=== PATIENT | female | born 1990 | race Two or more races ===

== ENCOUNTER 2019-02-09 13:16 | Emergency (ER) | payer SELFPAY ==
[2019-02-09 13:43] VITALS: BP 113/76; PULSE 65; TEMP 97.9; BMI 29.2
--- NOTE | 2019-02-09 14:39 | PDOC ---
History of Present Illness - General Chief Complaint: Ear Problem Stated Complaint: LT EAR PRESSURE Time Seen by Provider: 02/09/19 14:21 - History of Present Illness Initial Comments: 02/09/19 14:36 28-year-old female without comorbidities presents for evaluation of increasing ear pain 2 days no systemic symptoms Past History - Past Medical History Allergies/Adverse Reactions: Allergies Allergy/AdvReac Type Severity Reaction Status Date / Time No Known Allergies Allergy Verified 02/09/19 14:26 Home Medications: Ambulatory Orders Amox-Tr/K Cl [Augmentin - 875Mg Tablet] 1 tab PO BID #20 tablet 02/09/19 COPD: No - Immunization History Immunization Up to Date: Yes - Suicide/Smoking/Psychosocial Hx Smoking History: Never smoked Hx Alcohol Use: No Drug/Substance Use Hx: No Review of Systems - Review of Systems Constitutional: No: Fever HEENTM: Yes: Ear Pain, Throat Pain, Throat Swelling, Difficulty Swallowing *Physical Exam - Vital Signs Last Vital Signs Temp Pulse Resp BP Pulse Ox 97.9 F 65 18 113/76 98 02/09/19 13:40 02/09/19 13:40 02/09/19 13:40 02/09/19 13:40 02/09/19 13:40 - Physical Exam Comments: 02/09/19 14:37 HEAD: NC/AT EYES: Conjuntiva clear Ears: Right ear canal and tympanic membrane normal; left ear canal is erythematous tympanic membrane is erythemic and retracted NOSE: No d/c THROAT: Moist mucous membrances, oral pharanx erythematous, uvula midline NECK: Supple without adenopathy CARDIAC: S1 S2 LUNGS: CTA Full and Equal breath sounds ABDOMEN: Soft NT ND MS: Full ROM in all joints without edema NEUROLOGIC: No gross sensory or motor deficits, NVID SKIN: Normal color and temperature no lesions or rashes Medical Decision Making - Medical Decision Making 02/09/19 14:37 We'll use Augmentin for otitis media and potential strep *DC/Admit/Observation/Transfer Diagnosis at time of Disposition: Otitis media, Acute pharyngitis - Discharge Dispostion Disposition: HOME Condition at time of disposition: Stable Decision to Admit order: No - Referrals Referrals: Agustin Larkin MD [Primary Care Provider] - Aakash Zeng MD [Staff Physician] - - Patient Instructions Printed Discharge Instructions: Middle Ear Infection Additional Instructions: Please take the antibiotics as directed. Tylenol Motrin for pain as directed. Follow-up with ear nose and throat doctor in 1-2 days for further evaluation and treatment options. - Post Discharge Activity
== END 2019-02-09 14:47 | disposition home or self-care (01) ==
LOC: JERFT 13:16
DX: H66.92 Otitis media, unspecified, left ear (principal); J02.9 Acute pharyngitis, unspecified
CPT/HCPCS: 99281-25

== ENCOUNTER 2020-04-16 05:47 | Emergency (ER) | payer OTHER ==
[2020-04-16 06:24] VITALS: BMI 30.1
[2020-04-16 07:12] VITALS: BP 103/72; PULSE 64; TEMP 97.6
[2020-04-16] MEDS ORDERED: LACTATED RINGERS SOLUTION 1000 ML INFUS.BAG IV ONE (08:16)
--- NOTE | 2020-04-16 08:24 | PDOC ---
History of Present Illness - History of Present Illness Initial Comments: 04/16/20 08:10 29yo F presents w/ back pain, dizziness and cold sweat. The back pain first occurred after she gave on 02/14/2020. Pain is b/l and paraspinal. This has happened 2-3x since giving , and today's was the most intense. She woke up w/ back pain and felt the need to defecate. On the toilet she felt acutely dizzy and folded over her lap which relieved the pain and the feeling of dizziness. The pain is sharp and is relieved by stretching and leaning forward. She also c/o arthralgias in both wrists and knees since . Denies pain w/ urination, trauma, hematuria, falls, lower extremity weakness/numbness/tingling. No hematochezia/melena. Was on a medicine for constipation 2 weeks ago but stopped last week. No allergies. Takes OCP. This has never happened before. PMH - none PSH - none SHx - [id number] mom, denies tobacco, etoh, ilicit drug use. PCP - none ROS no recent illness, fever/cough/vomiting/diarrhea. +nausea. CV - none Lungs - none ABD - - , LMP was prior to second ; has not resumed menstruation. Had some bleeding last week but did not feel/seem like her normal period. PE NAD, resting comfortably, A/O x4 Neuro - CN2-12 intact. strength 5/5 in UE and LE, sensory grossly intact in UE and LE. negative romberg, normal gait Lungs - CTAB CV - normal rate, regular rhythm, no mgr. ABD - +bowel sounds, soft, non-tender, non-distended. no CVA tenderness. MSK - wrists nontender, knees nontender. Assessment - 29yo otherwise healthy female w/ intermittent paraspinal tender ness, mild arthralgia and an episode of lightheadedness since giving 02/14/2020 plan - TSH to r/o León Syndrome CBC to r/o anemia BMP to r/o electrolyte disturbance Upreg/UA to r/o and UTI 1L LR to hydrate. 04/16/20 08:36 04/16/20 09:21 Re-eval: Chemistry and CBC wnl. Urine suggests UTI. Sent keflex to pharmacy and gave pt PCP referral, d/c, and return instructions. Dispo: home. <Simeon Trejo - Last Filed: 04/16/20 09:21> <Juliane Anthony Oswaldootis - Last Filed: 04/20/20 17:49> - General Chief Complaint: Back Pain Stated Complaint: SIDE/BACK PAIN Time Seen by Provider: 04/16/20 07:01 Past History - Medical History COPD: No - Immunization History Immunization Up to Date: Yes - Psycho-Social/Smoking History Smoking History: Never smoked Information on smoking cessation initiated: No - Substance Abuse Hx (Audit-C & DAST Scrn) How often the patient has a drink containing alcohol: Never Score: In Men: 4 or > Positive; In Women: 3 or > Positive: 0 Screen Result (Pos requires Nsg. Audit-10AR): Negative In the last yr the pt used illegal drug/Rx for NonMed reason: No Score: Yes response is considered Positive: 0 Screen Result (Positive result requires Nsg. DAST-10): Negative <Simeon Trejo - Last Filed: 04/16/20 09:21> <Juliane Anthonybhavinotis - Last Filed: 04/20/20 17:49> - Medical History Allergies/Adverse Reactions: Allergies Allergy/AdvReac Type Severity Reaction Status Date / Time No Known Allergies Allergy Verified 04/16/20 05:52 Home Medications: Ambulatory Orders Cephalexin [Keflex] 500 mg PO BID 7 Days #14 capsule 04/16/20 Review of Systems - Review of Systems Able to Perform ROS?: Yes Constitutional: Yes: See HPI. No: Chills, Fever, Malaise, Weakness HEENTM: Yes: See HPI. No: Recent change in vision Respiratory: Yes: See HPI. No: Cough, Shortness of Breath Cardiac (ROS): Yes: See HPI, Lightheadedness. No: Chest Pain, Edema, Palpitations, Syncope ABD/GI: Yes: See HPI. No: Constipated, Diarrhea, Nausea, Vomiting : Yes: See HPI. No: Dysuria, Discharge, Frequency, Flank Pain, Hematuria, Pain, Urgency Musculoskeletal: Yes: See HPI, Back Pain. No: Joint Pain, Muscle Pain Integumentary: Yes: See HPI. No: Bruising, Change in Color, Dryness, Erythema, Pallor, Rash Neurological: Yes: See HPI, Dizziness. No: Headache, Numbness, Paresthesia, Tingling, Tremors, Weakness Psychiatric: No: Anxiety, Depression Endocrine: Yes: See HPI. No: Symptoms Reported Hematologic/Lymphatic: Yes: See HPI. No: Symptoms Reported, Anemia, Easy Bleeding, Easy Bruising All Other Systems: Reviewed and Negative <Juliane Anthony - Last Filed: 04/20/20 17:49> *Physical Exam - Vital Signs Last Vital Signs Temp Pulse Resp BP Pulse Ox 97.6 F 64 18 103/72 100 04/16/20 07:12 04/16/20 07:12 04/16/20 07:12 04/16/20 07:12 04/16/20 07:12 <Simeon Trejo - Last Filed: 04/16/20 09:21> - Vital Signs Last Vital Signs Temp Pulse Resp BP Pulse Ox 97.6 F 64 18 103/72 100 04/16/20 07:12 04/16/20 07:12 04/16/20 07:12 04/16/20 07:12 04/16/20 07:12 - Physical Exam General Appearance: Yes: Nourished, Appropriately Dressed, Apparent Distress HEENT: positive: EOMI, MADE[place], Normal ENT Inspection, Normal Voice, Pharynx Normal Neck: positive: Supple. negative: Tender Respiratory/Chest: positive: Lungs Clear. negative: Chest Tender, Respiratory Distress Cardiovascular: positive: Regular Rhythm, Regular Rate. negative: Edema Vascular Pulses: Dorsalis-Pedis (R): 2+, Doralis-Pedis (L): 2+ Gastrointestinal/Abdominal: positive: Normal Bowel Sounds, Soft. negative: Tender, Guarding, Rebound, Tenderness Musculoskeletal: positive: Normal Inspection, Other (thoracic paraspinal tenderness, no midline tenderness). negative: CVA Tenderness Extremity: positive: Normal Capillary Refill, Normal Inspection, Normal Range of Motion Integumentary: positive: Normal Color, Dry, Warm Neurologic: positive: pick and shovel worker II-XII NML intact, Fully Oriented, Alert, Normal Mood/Affect <Juliane Anthony - Last Filed: 04/20/20 17:49> ED Treatment Course - LABORATORY CBC & Chemistry Diagram: 04/16/20 08:03 04/16/20 08:03 <Mk Trejoel Kat - Last Filed: 04/16/20 09:21> - LABORATORY CBC & Chemistry Diagram: 04/16/20 08:03 04/16/20 08:03 - ADDITIONAL ORDERS Additional order review: 04/16/20 08:03 Urine Culture - Final Urine - Urine Clean Catch Normal Urogenital Chely 04/16/20 08:03 RBC 4.59 MCV 93.0 MCHC 33.1 RDW 13.1 MPV 8.4 - Medications Given in the ED: ED Medications Discontinued Medications Generic Name Dose Route Start Last Admin Trade Name Freq PRN Reason Stop Dose Admin Lactated Ringer's 1,000 ml 04/16/20 08:16 04/16/20 08:42 Lactated Ringers Solution IV 04/16/20 08:17 1,000 ml NOW ONE Administration <Juliane Anthony - Last Filed: 04/20/20 17:49> Discharge - Discharge Information Problems reviewed: Yes - Admission No <Simeon Trejo - Last Filed: 04/16/20 09:21> <Juliane Anthony - Last Filed: 04/20/20 17:49> - Discharge Information Clinical Impression/Diagnosis: UTI (urinary tract infection) Qualifiers: Urinary tract infection type: site unspecified Hematuria presence: with hematuria Qualified Code(s): N39.0 - Urinary tract infection, site not specified Condition: Stable Disposition: HOME - Additional Discharge Information Prescriptions: Cephalexin [Keflex] 500 mg PO BID 7 Days #14 capsule - Follow up/Referral Referrals: [facility] [place] [Provider Group] - Patient Discharge Instructions Patient Printed Discharge Instructions: DI for Urinary Tract Infection (UTI) Additional Instructions: What happened: You came into the ED with dizziness and back pain. We found a urinary tract infection (UTI) when we analyzed your urine. We prescribed and sent a medicine (antibiotic) to the pharmacy. What to do at home: take the entire course of antibiotics (7 days). If you have any discomfort you may take ibuprofen (400mg every 4-6hours) or tylenol (500- 1000mg 3x/day). Follow up: We have referred you to a primary care doctor. Please followup with this physician as soon as you can. Come back: if you are in severe distress, have any bad fever, or any new or worsening concerns. Print Language: [place] - Post Discharge Activity
[2020-04-16 08:29] LABS: HEMATOCRIT 42.7 % (32.4-45.2); HEMOGLOBIN 14.1 GM/dL (10.7-15.3); MCH 30.8 pg (25.7-33.7); MCHC 33.1 g/dl (32.0-36.0); MEAN PLT VOLUME 8.4 fl (7.5-11.1); PLATELET COUNT 270 K/MM3 (134-434); RBC 4.59 M/mm3 (3.60-5.2); RDW 13.1 % (11.6-15.6); WHITE BLOOD COUNT 8.4 K/mm3 (4.0-10.0)
[2020-04-16 08:36] LABS: HCG,QUALITATIVE URINE Negative
--- NOTE | 2020-04-16 08:38 | PDOC ---
Attending Attestation - Resident Resident Name: Simeon Trejo - ED Attending Attestation I have performed the following: I have examined & evaluated the patient, The case was reviewed & discussed with the resident, I agree w/resident's findings & plan - HPI HPI: 04/16/20 08:37 29yo F presents w/ back pain, dizziness and cold sweat. The back pain first occurred after she gave on 02/14/2020. Pain is b/l and paraspinal. This has happened 2-3x since giving , and today's was the most intense. She woke up w/ back pain and felt the need to defecate. On the toilet she felt acutely dizzy and folded over her lap which relieved the pain and the feeling of dizziness. The pain is sharp and is relieved by stretching and leaning forward. She also c/o arthralgias in both wrists and knees since . Denies pain w/ urination, trauma, hematuria, falls, lower extremity weakness/numbness/tingling. No hematochezia/melena. Was on a medicine for constipation 2 weeks ago but stopped last week. No allergies. Takes OCP. - Physicial Exam PE: 04/16/20 08:37 General: Well appearing, awake and alert, NAD. HEENT: NCAT, PERRL, EOMI, clear conjunctiva, anicteric, moist mucous membranes, clear oropharynx, no oral lesions.. Neck: neck supple, FROM Resp: CTAB, normal and even respirations, no respiratory distress CVS: RRR, no murmurs, 2+ peripheral pulses throughout, no peripheral edema Abdomen: soft, NTND, no rebound or guarding. No CVAT. Back: no midline tenderness, normal inspection and ROM; mild paravertebral TTP in the lower thoracic region. no flank or CVAT. MSK: no edema, GURROLA x4, ROM intact. No clubbing or cyanosis. normal bulk and tone. Extremities: no calf tenderness Neuro: alert, oriented appropriately; no focal neurologic deficits Skin: warm and well perfused, cap refill <2 sec, normal color - Medical Decision Making 04/16/20 08:38 Vital Signs Temp Pulse Resp BP Pulse Ox 97.6 F 64 18 103/72 100 04/16/20 07:12 04/16/20 07:12 04/16/20 07:12 04/16/20 07:12 04/16/20 07:12 vitals reviewed wnl. ddx. back pain: muscle spasms, myalgias, anemia, electrolyte/metabolic derangements, UTI, pyelonephritis no midline sx currently no pain has occ paraspinal pain in her thoracic region, no trauma no infectious sx no abdominal sx, no peritoneal sx. labs and lytes_wnl. normal Cr function UA prelim with +leuk esterase and copious wbcs, alvina with infection/simple UTI f/u urine cultures keflex x 1 week course Pt to be discharged in stable condition. Patient made aware of clinical impression, treatment recommendations and disposition plan, return precautions discussed (including but not limited to new or persistent/worsening symptoms, pain, fevers, or signs of infection, chest pain, respiratory distress, inability to tolerate oral intake, dehydration, syncope, or neurologic changes). Follow up with PMD and/or specialist as recommended, follow up information provided, take medications as instructed for duration of time. continue with supportive care, avoid triggers and precipitants. All questions answered to patient's satisfaction and expressed understanding and comfort with this. At the time of discharge, the patient is alert, clinically improved, tolerating po and verbalizes understanding of instructions, satisfied with the care received and felt comfortable with the plan. Patient does not suffer from an acute life- threatening medical condition at this time and is safe for outpatient follow- up. 04/16/20 08:51 04/16/20 09:18 Discharge - Discharge Information Problems reviewed: Yes Clinical Impression/Diagnosis: UTI (urinary tract infection) Qualifiers: Urinary tract infection type: site unspecified Hematuria presence: with hematuria Qualified Code(s): N39.0 - Urinary tract infection, site not specified Condition: Stable Disposition: HOME - Admission No - Additional Discharge Information Prescriptions: Cephalexin [Keflex] 500 mg PO BID 7 Days #14 capsule - Follow up/Referral Referrals: [facility] [place] [facility] [place] [Provider Group] - Patient Discharge Instructions Patient Printed Discharge Instructions: DI for Urinary Tract Infection (UTI) Additional Instructions: What happened: You came into the ED with dizziness and back pain. We found a urinary tract infection (UTI) when we analyzed your urine. We prescribed and sent a medicine (antibiotic) to the pharmacy. What to do at home: take the entire course of antibiotics (7 days). If you have any discomfort you may take ibuprofen (400mg every 4-6hours) or tylenol (500- 1000mg 3x/day). Follow up: We have referred you to a primary care doctor. Please followup with this physician as soon as you can. Come back: if you are in severe distress, have any bad fever, or any new or worsening concerns. Print Language: GUINEAN - Post Discharge Activity
[2020-04-16 08:39] LABS: EPI CELLS >36 /uL (0-25.1); HYALINE CASTS 3 /uL (0-3.1); URINE APPEARANCE CLOUDY; URINE BACTERIA 2220 /uL (0-1359); URINE BILIRUBIN NEGATIVE (NEGATIVE); URINE COLOR YELLOW; URINE GLUCOSE (UA) NEGATIVE (NEGATIVE); URINE KETONE NEGATIVE (NEGATIVE); URINE LEUK ESTERASE 2+ (NEGATIVE); URINE NITRITE NEGATIVE (NEGATIVE); URINE PROTEIN NEGATIVE (NEGATIVE); URINE RBC 9 /uL (0-23.9); URINE UROBILINOGEN 0.2 mg/dL (0.2-1.0); URINE WBC 284 /uL (0-25.8)
[2020-04-16 09:09] LABS: BLOOD UREA NITROGEN 14.9 mg/dL (7-18); CALCIUM 9.2 mg/dL (8.5-10.1); CREATININE 0.8 mg/dL (0.55-1.3); POTASSIUM 4.4 mmol/L (3.5-5.1)
== END 2020-04-16 09:24 | disposition home or self-care (01) ==
LOC: JER 05:47
DX: N39.0 Urinary tract infection, site not specified (principal)
CPT/HCPCS: 36415; 80048; 81003; 84443; 84703; 85027; 87086; 99284-25

== ENCOUNTER → 2020-06-12 | Emergency (ER) | payer OTHER ==
[~2020-06-12] MED LIST: ACETAMINOPHEN 1000 MG/100 ML VIAL (NON FORMULARY) IVPB ONE; ACETAMINOPHEN INJECTION 100 ML IVPB ONE; ONDANSETRON 4 MG/2 ML VIAL IVPUSH ONE; PIPERACILLIN/TAZOB 3.375 GM 3.375 GM in DEXTROSE 5%-WATER - 50 ML IVPB ONE; PIPERACILLIN/TAZOB 3.375 GM 3.375 GM/50 ML BAG IVPB ONE; SODIUM CHLORIDE 0.9% 500 ML INFUS.BAG IV ONE
--- NOTE | 2020-06-12 23:51 | PDOC ---
History of Present Illness - General Chief Complaint: Pain Stated Complaint: PAIN Time Seen by Provider: 06/12/20 23:51 History Source: Patient, Old Records Exam Limitations: No Limitations - History of Present Illness Initial Comments: 06/12/20 23:51 Bouchra Barcenas is an otherwise healthy 29F @ 3 months presenting with intermittent abdominal pain. Since her second childbirth has had intermittent fever/chills with diaphoresis associated with abdominal pain that dissipates without any intervention. Does not take medications for pain. Was seen at [facility] in the last few months for the same pain, discharged home with dx UTI. Last few days has had same chills and abdominal pain, but today has been constant and did not go away, prompting visit to the ED. Pain is mainly RUQ but when active can be across entire abdomen, described as having urgency to have a BM, worse when supine. No associated N/V, tolerating PO intake, no sick contacts. No prior abdominal surgery. No vaginal bleeding or discharge, no urinary symptoms. Does not take medications. Denies recent alcohol/drug/tobacco use. Past History - Medical History Allergies/Adverse Reactions: Allergies Allergy/AdvReac Type Severity Reaction Status Date / Time No Known Allergies Allergy Verified 04/16/20 05:52 Home Medications: Ambulatory Orders NK [No Known Home Medication] 06/13/20 COPD: No - Reproductive History Is Patient Now?: No - Immunization History Immunization Up to Date: Yes - Psycho-Social/Smoking History Smoking History: Never smoked - Substance Abuse Hx (Audit-C & DAST Scrn) How often the patient has a drink containing alcohol: Never Score: In Men: 4 or > Positive; In Women: 3 or > Positive: 0 Screen Result (Pos requires Nsg. Audit-10AR): Negative Review of Systems - Review of Systems Able to Perform ROS?: Yes Constitutional: Yes: Chills, Fever HEENTM: No: Symptoms Reported Respiratory: No: Shortness of Breath, SOB with Exertion, SOB at Rest, Stridor Cardiac (ROS): No: Chest Pain, Syncope, Chest Tightness ABD/GI: Yes: Abdominal cramping. No: Constipated, Diarrhea, Nausea, Poor Appetite, Poor Fluid Intake, Vomiting : No: Symptoms Reported Musculoskeletal: No: Symptoms Reported Integumentary: No: Symptoms Reported Neurological: No: Symptoms reported Endocrine: No: Symptoms Reported All Other Systems: Reviewed and Negative *Physical Exam - Vital Signs Last Vital Signs Temp Pulse Resp BP Pulse Ox 97.8 F 50 L 20 95/55 L 100 06/12/20 22:12 06/12/20 22:12 06/12/20 22:12 06/12/20 22:12 06/12/20 22:12 - Physical Exam General Appearance: Yes: Nourished, Appropriately Dressed, Obese, Other (sitting up in bed in obvious discomfort) HEENT: positive: EOMI, Pharynx Normal. negative: Scleral Icterus (R), Scleral Icterus (L), Pharyngeal Erythema Neck: positive: Normal Thyroid, Supple. negative: Tender, Decreased range of motion, Lymphadenopathy (R), Lymphadenopathy (L) Respiratory/Chest: positive: Lungs Clear, Normal Breath Sounds. negative: Chest Tender, Respiratory Distress, Accessory Muscle Use, Crackles, Rales, Rhonchi, Stridor, Wheezing Cardiovascular: positive: Regular Rhythm, Regular Rate Gastrointestinal/Abdominal: positive: Normal Bowel Sounds, Tender (generalized, + Edwards), Soft, Guarding, Rebound. negative: Organomegaly, Pulsatile Mass, Hernia Musculoskeletal: positive: Normal Inspection. negative: CVA Tenderness, Decreased Range of Motion, Vertebral Tenderness Extremity: positive: Normal Capillary Refill, Normal Inspection. negative: Normal Range of Motion, Tender, Pelvis Stable, Pedal Edema, Swelling, Calf Tenderness Integumentary: positive: Normal Color, Dry, Warm Neurologic: positive: Fully Oriented, Alert, Normal Mood/Affect, Normal Response ED Treatment Course - LABORATORY CBC & Chemistry Diagram: 06/13/20 00:18 06/13/20 00:18 - RADIOLOGY Radiograph Interpretation: 06/13/20 03:07 Aime Pete MD wrote on Jun 13, 2020 at 02:39 AM: Referring Physician: TEDDY FORD RESIDENT Patient Name: DAVID DIAZ THIS IS A PRELIMINARY REPORT DATE OF SERVICE: 2020-06-13 01:45:52 IMAGES: 621 EXAM: CT ABDOMEN WITH CONTRAST AND CT PELVIS WITH CONTRAST HISTORY: 29-Year-Old Female Abdominal Pain COMPARISON: None. Contrast: Omnipaque 350 intravenous contrast FINDINGS: Mild basilar atelectasis. Cholelithiasis in the gallbladder neck with moderate gallbladder distention most likely consistent with gallbladder dysmotility suspicious for superimposed chronic cholecystitis. Mildly dilated intrahepatic bile ducts and common bile duct suspicious for choledocholithiasis. Liver pancreas spleen and adrenal glands kidneys appear unremarkable. No nephrolithiasis or hydronephrosis. Lack of oral contrast limits this exam. Non- oral contrast evaluation stomach small bowel and appendix appear unremarkable. No appendicitis. Diverticulosis. No diverticulitis. Uterus appears unremarkable. No free air. No free fluid. No abscess. Bladder appears unremarkable. Mild degenerative disc disease. Small umbilical hernia of omental fat without incarceration. Small inguinal hernias omental fat without incarceration. Subcentimeter mesenteric lymph nodes noted. IMPRESSION: No appendicitis. Cholelithiasis in the gallbladder neck with moderate gallbladder distention most likely consistent with gallbladder dysmotility suspicious for superimposed chronic cholecystitis. If clinically indicated follow-up Outpatient Nuclear Medicine Hepatobiliary Scan With a Slow 10 Minute Cholecystokinin Injection Gallbladder Ejection Fraction Calculation may be needed. Mildly dilated intrahepatic bile ducts and common bile duct suspicious for choledocholithiasis. If clinically indicated follow-up Outpatient Magnetic Resonance Cholangiopancreatogram MRCP protocol MRI abdomen may be needed. Medical Decision Making - Medical Decision Making 06/12/20 23:51 Patient has had intermittent chills and abdominal pain for the last few months , treated for UTI in the past but no urinary sx at this time, currently constant with a tender abdomen and guarding. Afebrile, VSS. Concerned for intra-abdominal infection such as appy/GB/colitis, pancreatitis renal calculus, UTI/pyelo, ovarian pathology. CBC/CMP/lipase/preg/UA/UC/ECG and CTAP with IV contrast Ofirmev and IVF and Zofran for symptom management Labs notable for: - WBC 14.9, consistent with infectious process - glucose 120 - mild transaminitis to 100s - UA contaminated but no infectious markers elevated CTAP shows cholelithiasis with distended GB consistent with chronic cholecystitis. Patient feeling better but wash tank tender, elevated WBC, CT findings of cholecystitis. Started on IV Zosyn for presumed GB infection. No surgical consult manager business operations for the emergency room at this time. Discussed findings with patient and recommend evaluation for surgery at outside hospital. Patient agrees to be transferred to [facility] for surgical evaluation. Discussed case with Dr. Mckeon at [facility] surgery, accepts for transfer to ED. Patient left ED with EMS after receiving IV ABx. Discharge - Discharge Information Problems reviewed: Yes Clinical Impression/Diagnosis: Cholecystitis Condition: Stable Disposition: TRANSFER ACUTE CARE/OTHER HOSP - Admission No - Follow up/Referral - Patient Discharge Instructions - Post Discharge Activity
--- NOTE | 2020-06-13 00:03 | PDOC ---
Documentation entered by Cyndie Araiza SCRIBE, acting as scribe for Krystina Villasenor MD. Krystina Villasenor MD: This documentation has been prepared by the Anusha tafoya Sydney, SCRIBE, under my direction and personally reviewed by me in its entirety. I confirm that the documentation accurately reflects all work, treatment, procedures, and medical decision making performed by me. Attending Attestation - Resident Resident Name: Martinez Jose - ED Attending Attestation I have performed the following: I have examined & evaluated the patient, The case was reviewed & discussed with the resident, I agree w/resident's findings & plan, Exceptions are as noted - HPI HPI: 06/12/20 23:59 29 yo female has 3 months of intermittent abdomen pain,nausea,fever,chills. She gave 3 months ago she had not taken any medications for these symptoms Patient is a 29 year old female with a significant past medical history of 3 months ago () who presents to the ED with three months of intermittent a bdominal pain. As per patient, ever since giving , she has been experiencing intermittent fever, chills, and abdominal pain, where she feels like she needs to make a bowel movement. Patient endorses this feeling usually resolves on its own. She also notes some nausea with these episodes. She reports worsening symptoms the last three days, where her abdominal pain has not gone away, prompting her arrival to the ED. Denies headache, shortness of breath, chest pain, vomiting, diarrhea, or urinary changes. Allergies: NKDA - Physicial Exam PE: 06/13/20 00:[address] Jose's physical exam - Medical Decision Making 06/13/20 00:02 concern for appendicitis, cholecystitis ,uti labs pending Discharge - Discharge Information Problems reviewed: Yes Clinical Impression/Diagnosis: Cholecystitis Condition: Stable Disposition: TRANSFER ACUTE CARE/OTHER HOSP - Follow up/Referral - Patient Discharge Instructions - Post Discharge Activity
[2020-06-13 00:45] LABS: BASO % 0.3 % (0-2.0); EOS % 0.2 % (0-4.5); HEMATOCRIT 41.8 % (32.4-45.2); HEMOGLOBIN 14.1 GM/dL (10.7-15.3); LYMPH % 11.4 % (8-40); MCH 30.9 pg (25.7-33.7); MCHC 33.6 g/dl (32.0-36.0); MEAN CELL VOLUME 91.9 fl (80-96); MONO % 3.9 % (3.8-10.2); NEUT % 84.2 % (42.8-82.8); PLATELET COUNT 252 K/MM3 (134-434); RBC 4.55 M/mm3 (3.60-5.2); RDW 12.7 % (11.6-15.6); WHITE BLOOD COUNT 14.9 K/mm3 (4.0-10.0)
[2020-06-13 00:47] LABS: EPI CELLS >36 /uL (0-25.1); HYALINE CASTS 5 /uL (0-3.1); URINE APPEARANCE CLEAR; URINE BACTERIA 501 /uL (0-1359); URINE BILIRUBIN NEGATIVE (NEGATIVE); URINE COLOR YELLOW; URINE GLUCOSE (UA) NEGATIVE (NEGATIVE); URINE KETONE TRACE (NEGATIVE); URINE LEUK ESTERASE TRACE (NEGATIVE); URINE NITRITE NEGATIVE (NEGATIVE); URINE PROTEIN TRACE (NEGATIVE); URINE RBC 11 /uL (0-23.9); URINE WBC 37 /uL (0-25.8)
[2020-06-13 01:07] LABS: BILIRUBIN,TOTAL 0.5 mg/dL (0.2-1); BLOOD UREA NITROGEN 14.3 mg/dL (7-18); CALCIUM 9.3 mg/dL (8.5-10.1); CREATININE 0.7 mg/dL (0.55-1.3); POTASSIUM 3.9 mmol/L (3.5-5.1); TOT PROT 7.3 g/dl (6.4-8.2)
[2020-06-13 01:08] LABS: INR 1.03 (0.83-1.09); PROTHROMBIN TIME (PATIENT) 12.1 SEC (9.7-13.0)
[2020-06-13 01:11] LABS: ACTIVATED PTT 29.9 SECONDS (25.2-36.5)
[2020-06-13 04:16] VITALS: BP 104/66; PULSE 56
[2020-06-13 04:58] VITALS: TEMP 97.2
--- NOTE | 2020-06-13 09:12 | EKG ---
Test Reason : Blood Pressure : / mmHG Vent. Rate : 050 BPM Atrial Rate : 050 BPM P-R Int : 126 ms QRS Dur : 070 ms QT Int : 438 ms P-R-T Axes : 049 054 026 degrees QTc Int : 399 ms POOR DATA QUALITY, INTERPRETATION MAY BE ADVERSELY AFFECTED SINUS BRADYCARDIA possible anterior ischemia ABNORMAL ECG Confirmed by MD LESLIE, DISHA ([id number]) on 06/13/2020 9:11:37 AM Referred By: Confirmed By:DISHA NELSON MD
== END | disposition short-term general hospital (02) ==
LOC: JER 21:58
PROC: 3E033NZ Introduction of Analgesics, Hypnotics, Sedatives into Peripheral Vein, Percutaneous Approach (ICD-10-PCS; principal; 2020-06-12)
DX: K81.0 Acute cholecystitis (principal)
CPT/HCPCS: 36415; 71045-TC-FY; 74177-TC; 80053; 81003; 83690; 84703; 85025; 85610; 85730; 87086; 93005; 93010; 99285-25; J0131

== ENCOUNTER 2023-04-09 12:13 | Emergency (ER) | payer OTHER ==
[2023-04-09 12:19] VITALS: BP 120/70; PULSE 69; RESP 18; TEMP 98; BMI 28.3
[2023-04-09] MEDS ORDERED: ACETAMINOPHEN 1000 MG/100 ML BAG IVPB ONE (14:14)
[2023-04-09] MEDS ORDERED: MAG HYDROX/AL HYDROX/SIMETH -MYLANTA- ORAL SUSPENSION PO ONE (14:14)
[2023-04-09] MEDS ORDERED: FAMOTIDINE 20 MG/50 ML IVPB 20 MG/50 ML MG IVPB ONE ×2 (14:14→14:19)
[2023-04-09] MEDS ORDERED: PANTOPRAZOLE SODIUM 40 MG VIAL IVPUSH ONE (14:15)
[2023-04-09] MEDS ORDERED: LACTATED RINGERS SOLUTION 1000 ML INFUS.BAG IV ONE (14:15)
[2023-04-09] MEDS ORDERED: ACETAMINOPHEN INJECTION 100 ML IVPB ONE (14:18)
[2023-04-09] MEDS ORDERED: MAG HYDROX/AL HYDROX/SIMETH 30 ML UNIT-DOSE CUP ONE (14:19)
[2023-04-09] MEDS ORDERED: PANTOPRAZOLE SODIUM 40 MG VIAL ONE (14:19)
[2023-04-09 14:58] LABS: BASO % 0.4 % (0-2.0); EOS % 1.1 % (0-4.5); HEMATOCRIT 43.8 % (32.4-45.2); HEMOGLOBIN 14.5 GM/dL (10.7-15.3); LYMPH % 28.9 % (8-40); MCH 30.8 pg (25.7-33.7); MCHC 33.1 g/dl (32.0-36.0); MEAN CELL VOLUME 92.8 fl (80-96); MEAN PLT VOLUME 8.4 fl (7.5-11.1); MONO % 5.1 % (3.8-10.2); NEUT % 64.5 % (42.8-82.8); PLATELET COUNT 260 10^3/uL (134-434); RBC 4.72 M/mm3 (3.60-5.2); RDW 12.6 % (11.6-15.6); WHITE BLOOD COUNT 6.3 K/mm3 (4.0-10.0)
[2023-04-09 15:02] LABS: EPI CELLS 21 /uL (0-25.1); HCG,QUALITATIVE URINE Negative; HYALINE CASTS 0 /uL (0-3.1); PH,URINE 6.5 (5.0-8.0); URINE APPEARANCE CLEAR; URINE BACTERIA 1116 /uL (0-1359); URINE BILIRUBIN NEGATIVE (NEGATIVE); URINE COLOR YELLOW; URINE GLUCOSE (UA) NEGATIVE (NEGATIVE); URINE KETONE 3+ (NEGATIVE); URINE LEUK ESTERASE TRACE (NEGATIVE); URINE NITRITE NEGATIVE (NEGATIVE); URINE PROTEIN NEGATIVE (NEGATIVE); URINE RBC 25 /uL (0-23.9); URINE UROBILINOGEN 0.2 mg/dL (0.2-1.0); URINE WBC 5 /uL (0-25.8)
[2023-04-09 15:06] LABS: POTASSIUM 4.2 mmol/L (3.5-5.1)
[2023-04-09 15:08] LABS: ALBUMIN 4.2 g/dl (3.4-5.0); CALCIUM 9.3 mg/dL (8.5-10.1)
[2023-04-09 15:09] LABS: BLOOD UREA NITROGEN 8.5 mg/dL (7-18)
[2023-04-09 15:12] LABS: CREATININE 0.5 mg/dL (0.55-1.3)
[2023-04-09 15:14] LABS: BILIRUBIN,TOTAL 0.4 mg/dL (0.2-1); TOT PROT 7.2 g/dl (6.4-8.2)
[2023-04-09] MEDS ORDERED: CEFTRIAXONE 1,000 MG in DEXTROSE 5%-WATER - 50 ML IVPB ONE (15:40)
[2023-04-09] MEDS ORDERED: KETOROLAC TROMETHAMINE 15 MG/ML VIAL IVPUSH ONE (15:53)
[2023-04-09] MEDS ORDERED: CEFTRIAXONE 1 GM/50 ML BAG ONE (16:01)
[2023-04-09] MEDS ORDERED: KETOROLAC TROMETHAMINE 15 MG/ML VIAL ONE (16:01)
== END 2023-04-09 19:28 | disposition home or self-care (01) ==
LOC: JER 12:13
PROC: 3E033GC Introduction of Other Therapeutic Substance into Peripheral Vein, Percutaneous Approach (ICD-10-PCS; principal; 2023-04-09)
PROC: 3E033GC Introduction of Other Therapeutic Substance into Peripheral Vein, Percutaneous Approach (ICD-10-PCS; 2023-04-09)
PROC: 3E033GC Introduction of Other Therapeutic Substance into Peripheral Vein, Percutaneous Approach (ICD-10-PCS; 2023-04-09)
PROC: 3E033GC Introduction of Other Therapeutic Substance into Peripheral Vein, Percutaneous Approach (ICD-10-PCS; 2023-04-09)
PROC: 3E033GC Introduction of Other Therapeutic Substance into Peripheral Vein, Percutaneous Approach (ICD-10-PCS; 2023-04-09)
DX: R10.9 Unspecified abdominal pain (principal); R11.2 Nausea with vomiting, unspecified; K59.00 Constipation, unspecified; N39.0 Urinary tract infection, site not specified; R19.7 Diarrhea, unspecified
CPT/HCPCS: 36415; 74177-TC; 80053; 81003; 83690; 84703; 85025; 87086; 99285-25; Q9967